=== PATIENT | male | born 1995 | race African-American/Black ===

== ENCOUNTER 2020-01-30 12:39 | Emergency (ER) | payer OTHER, SELFPAY ==
[2020-01-30] MEDS ORDERED: Lidocaine 1% w/Epinephrine 1:100K 20 ML VIAL ONE (12:45)
[2020-01-30] MEDS ORDERED: Bacitracin 1 PK ONE (12:45)
[2020-01-30] MEDS ORDERED: Adacel (T-DAP) 0.5 ML SYRINGE ONE (13:37)
--- NOTE | 2020-01-30 14:06 | RAD ---
LEFT TIBIA AND FIBULA 2 VIEWS: HISTORY: Injury, laceration following glass breakage. Minimal nonspecific soft tissue swelling anteriorly ove r the distal ankle and hindfoot region. No acute fracture or dislocation. No overt opaque foreign b fabi. IMPRESSION: No fracture, dislocation, or overt opaque foreign body. Minimal nonspecific soft tissue fullness ant eriorly over the distal lower leg and ankle and hindfoot. POS: RRE
== END 2020-01-30 13:53 | disposition home or self-care (01) ==
LOC: ERS 12:39
DX: S81.812A Laceration without foreign body, left lower leg, initial encounter (principal); F17.210 Nicotine dependence, cigarettes, uncomplicated; W25.XXXA Contact with sharp glass, initial encounter
CPT/HCPCS: 12002; 90471; 90715

== ENCOUNTER 2020-02-10 13:44 | Emergency (ER) | payer SELFPAY | END 2020-02-10 14:05 | disposition home or self-care (01) | LOC: ERS 13:44 | DX: S81.812D Laceration without foreign body, left lower leg, subsequent encounter (principal); F17.210 Nicotine dependence, cigarettes, uncomplicated; J45.909 Unspecified asthma, uncomplicated; W25.XXXD Contact with sharp glass, subsequent encounter ==

== ENCOUNTER 2021-07-23 06:31 | Emergency (ER) | payer SELFPAY ==
[2021-07-23 19:12] LABS: SARS-CoV-2 PCR by NAA Not Detected (NotDetected)
== END 2021-07-23 07:25 | disposition home or self-care (01) ==
LOC: ERS 06:31
DX: R05 Cough (principal); Z20.822 Contact with and (suspected) exposure to COVID-19
CPT/HCPCS: 99283; U0003; U0005

== ENCOUNTER 2022-11-28 04:31 | Emergency (ER) | payer SELFPAY ==
[2022-11-28] MEDS ORDERED: Acetaminophen 500 MG TAB ONE (04:53)
[2022-11-28 05:20] LABS: #Lymphocytes 0.8 thou/uL (1.20-3.40); #Monocytes 0.8 thou/uL (0.11-0.59); #Neutrophils 5.5 thou/uL (1.40-6.50); %Basophils 0.5 % (0.0-1.0); %Eosinophils 0.2 % (0.0-10.0); %Lymphocytes 11.1 % (21.0-51.0); %Monocytes 10.9 % (0.0-10.0); %Neutrophils 77.4 % (42.0-75.0); Hemoglobin 14.3 g/dL (14.0-18.0); Mean Corpuscular HGB CONC 34.4 g/dL (32.0-36.0); Mean Corpuscular Hemoglobin 32.9 pg (27.0-31.0); Mean Corpuscular Volume 95.6 fl (78.0-98.0); Mean Platelet Volume 7.7 fL (7.4-10.4); Platelet Count 291 10x3/uL (130-400); RBC Distribution Width 12.4 % (11.5-14.5); Red Blood Cell (RBC) Count 4.34 mill/uL (4.70-6.10); White Blood Cell (WBC) Count 7.1 10x3/uL (4.8-10.8)
[2022-11-28 05:45] LABS: ALT (SGPT) 9 U/L (8-55); AST (SGOT) 14 U/L (5-34); Albumin 4.4 g/dL (3.5-5.0); Alkaline Phosphatase 55 U/L (40-110); Anion Gap 11 mmol/L (10-20); BUN (Urea Nitrogen) 5 mg/dL (8.9-20.6); Bilirubin, Total 0.6 mg/dL (0.2-1.2); Calc. Creatinine Clearance 0 mL/min (70-130); Calcium 9.7 mg/dL (7.8-10.44); Carbon Dioxide 25 mmol/L (22-29); Chloride 107 mmol/L (98-107); Estimated GFR 115; Globulin 2.4 g/dL (2.4-3.5); Glucose 114 mg/dL (70-105); Protein, Total 6.8 g/dL (6.0-8.3); Sodium 139 mmol/L (136-145)
[2022-11-28 05:51] LABS: Bacteria/HPF None Seen HPF (None Seen); Bilirubin Negative (Negative); Blood, Urine Negative (Negative); Clarity Clear (Clear); Glucose, Urine (Dipstick) Normal (Negative); Ketone, Urine Negative (Negative); Leukocyte 75 Leu/uL (Negative); Nitrite Negative (Negative); Protein, Urine (Dipstick) Negative (Neg-Trace); RBC/HPF 0-3 HPF (0-3); Specific Gravity, Urine 1.006 (1.002-1.036); Squamous Epithelial None Seen HPF (0-3); Urobilinogen Normal mg/dL (Less than 2); WBC/HPF 0-3 HPF (0-3)
[2022-11-28 06:04] LABS: SARS-CoV-2 NAA Rapid Test DETECTED (NotDetected)
== END 2022-11-28 06:51 | disposition home or self-care (01) ==
LOC: ERS 04:31
DX: U07.1 COVID-19 (principal); F17.210 Nicotine dependence, cigarettes, uncomplicated
CPT/HCPCS: 71045; 80053; 81003; 81015; 85025; 93005